=== PATIENT | female | born 1930 | race Caucasian/White ===

== ENCOUNTER 2016-11-05 10:57 | Emergency (ER) | payer OTHER, MEDICARE ==
[~2016-11-05] VITALS: Ht 157.5 cm; Wt 73.8 kg
[~2016-11-05 10:57] MED LIST: CLC100 PO; FRRG PO; INSU70IN2 SC; LVNIS40 SQ; RXC5 PO
[2016-11-05 11:00] VITALS: TEMP 36.8; Ht 157.5 cm; Wt 73.8 kg
[2016-11-05] MEDS ORDERED: POTA-74 PO (11:43)
[2016-11-05] MEDS ORDERED: GLC/500 PO (11:45)
[2016-11-05] MEDS ORDERED: CLINDAMYCIN 600 MG/54 ML D5W IV ONE (11:45)
[2016-11-05] MEDS ORDERED: FRS/40 PO (11:46)
[2016-11-05] MEDS ORDERED: CLIN300C2 PO (11:49)
[2016-11-05 12:04] LABS: BASO % 0.1 %; BASO ABS # 0.01 K/uL (0-0.2); COMPLETE YES; EOS % 1.8 %; IG% 0.1 %; LYMPH % 20.4 %; LYMPH ABS # 1.51 K/uL (1.2-3.4); MEAN CELL VOLUME 90.4 fL (80-100); MEAN CORPUSCULAR HEMOGLOBIN 30.7 pg (25-34); MEAN PLATELET VOLUME 10.9 fL (7.4-10.4); MONO % 6.8 %; NEUT % 70.8 %; PLATELET COUNT 293 K/uL (130-400); RED BLOOD COUNT 3.87 M/uL (4.2-5.4); WHITE BLOOD COUNT 7.39 K/uL (4.8-10.8)
[2016-11-05 12:21] LABS: BUN/CREATININE RATIO 13.2 (10-20); CALCIUM 9.1 mg/dl (8.5-10.1); CREATININE 1.1 mg/dl (0.60-1.20); POTASSIUM 3.7 mmol/L (3.5-5.1)
--- NOTE | 2016-11-05 12:25 | DIAGNOSTIC IMAGING REPORT ---
LEFT TIBIA/FIBULA 2 VIEWS ROUTINE CLINICAL HISTORY: Lower leg infection. Nonhealing wound. Diabetes. COMPARISON: None. DISCUSSION: The bones are osteopenic. There are degenerative changes present the level of the knee. There is mild lateral translation of the tibia with respect to the liver. There are no acute fractures. There are no destructive lesions to indicate osteomyelitis. There is soft tissue edema, most pronounced distally. IMPRESSION: 1. No acute fractures 2. Soft tissue edema 3. No conventional radiographic evidence of osteomyelitis Electronically signed by: Ian Aaron M.D. 11/05/2016 12:23 PM
--- NOTE | 2016-11-05 12:54 | EMERGENCY ROOM VISIT NOTE ---
ED Visit Note First contact with patient: 11:18 I have personally seen and evaluated the patient with the physician product safety technical assistant. I agree with the diagnostic/management decisions and have personally been involved in these decisions and agree with the diagnosis.
--- NOTE | 2016-11-05 13:49 | EMERGENCY ROOM VISIT NOTE ---
History First contact with patient: 11:18 Chief Complaint: WOUND INFECTION Stated Complaint: NON-HEALING WOUND Nursing Triage Summary: pt reports on sep 24 had wine bottle fell on her left lower leg. went to [facility] on saturday was marked withy marker and told to come to ed if worse or not better was placed on antibiotics History of Present Illness The patient is a 86 year old female who presents to the Emergency Room with complaints of a wound that is not healing on her left lower leg. The patient states on September 24 she dropped a wine bottle and it hit her left lower leg. The patient did not seek any medical attention at that time. Later she went to her family doctor since there was a wound on the left anterior leg that wasn't healing. He placed her on Keflex. Family member stated that she was not compliant with taking the Keflex. She then went to [facility] on Saturday and was prescribed clindamycin. She states she has been taking the clindamycin as prescribed. The patient states that they marked the area of redness around the open wound. She states it is not getting any better but is not getting any worse. She was told to come to the emergency room if symptoms were not improving. The patient denies any fever, chest pain or shortness of breath. The patient is diabetic. The patient states that her blood sugar this morning was 190. The patient denies any pain in the leg. Review of Systems 10 system review was performed and was negative unless stated otherwise history of present illness. Past Medical/Surgical History Medical Problems: (1) Closed right hip fracture (2) Diabetes mellitus (3) Injury of shoulder region Family History Omitted due to advanced age Social History Smoking Status: Never Smoker Marital Status: Housing Status: assisted Occupation Status: retired Current/Historical Medications Scheduled Clindamycin Hcl (Cleocin), 300 MG PO QID Furosemide (Lasix), 40 MG PO DAILY Metformin Hcl (Glucophage), 500 MG PO BID Potassium Chloride (Potassium Chloride Er), 1 TAB PO BID Allergies Coded Allergies: Morphine (Verified Adverse Reaction, Unknown, OVERSEDATION & VOMITING, 11/05) Physical Exam Vital Signs Date Time Temp Pulse Resp B/P Pulse Ox O2 Delivery O2 Flow Rate FiO2 11/05/16 13:14 80 20 125/66 96 Room Air 11/05/16 11:00 36.8 92 18 160/87 98 Room Air Physical Exam GENERAL: 86-year-old white female appears in no acute distress. MENTAL Status: Alert and oriented 3. LUNGS: Clear auscultation without wheezes rales or rhonchi. CARDIAC: Regular rate and rhythm without murmur. Pulses is full and equal throughout. LEFT LOWER EXTREMITY: There is approximately a 2 cm ulcerated lesion on the anterior aspect with surrounding erythema. The margins are marked consistent with prior evaluation at [facility]. The erythema does not extend past the marked margins there is no streaking up the leg.. Medical Decision & Procedures ER Provider Diagnostic Interpretation: LEFT TIBIA/FIBULA 2 VIEWS ROUTINE CLINICAL HISTORY: Lower leg infection. Nonhealing wound. Diabetes. COMPARISON: None. DISCUSSION: The bones are osteopenic. There are degenerative changes present the level of the knee. There is mild lateral translation of the tibia with respect to the liver. There are no acute fractures. There are no destructive lesions to indicate osteomyelitis. There is soft tissue edema, most pronounced distally. IMPRESSION: 1. No acute fractures 2. Soft tissue edema 3. No conventional radiographic evidence of osteomyelitis Electronically signed by: Ian Aaron M.D. 11/05/2016 12:23 PM Laboratory Results 11/05/16 11:55 Red Blood Count 3.87, Mean Corpuscular Volume 90.4, Mean Corpuscular Hemoglobin 30.7, Mean Corpuscular Hemoglobin Concent 34.0, Mean Platelet Volume 10.9, Neutrophils (%) (Auto) 70.8, Lymphocytes (%) (Auto) 20.4, Monocytes (%) (Auto) 6.8, Eosinophils (%) (Auto) 1.8, Basophils (%) (Auto) 0.1, Neutrophils # (Auto) 5.23, Lymphocytes # (Auto) 1.51, Monocytes # (Auto) 0.50, Eosinophils # (Auto) 0.13, Basophils # (Auto) 0.01 11/05/16 11:55 Test 11/05/16 11:55 White Blood Count 7.39 K/uL (4.8-10.8) Red Blood Count 3.87 M/uL (4.2-5.4) Hemoglobin 11.9 g/dL (12.0-16.0) Hematocrit 35.0 % (37-47) Mean Corpuscular Volume 90.4 fL (80-100) Mean Corpuscular Hemoglobin 30.7 pg (25-34) Mean Corpuscular Hemoglobin Concent 34.0 g/dl (32-36) Platelet Count 293 K/uL (130-400) Mean Platelet Volume 10.9 fL (7.4-10.4) Neutrophils (%) (Auto) 70.8 % Lymphocytes (%) (Auto) 20.4 % Monocytes (%) (Auto) 6.8 % Eosinophils (%) (Auto) 1.8 % Basophils (%) (Auto) 0.1 % Neutrophils # (Auto) 5.23 K/uL (1.4-6.5) Lymphocytes # (Auto) 1.51 K/uL (1.2-3.4) Monocytes # (Auto) 0.50 K/uL (0.11-0.59) Eosinophils # (Auto) 0.13 K/uL (0-0.5) Basophils # (Auto) 0.01 K/uL (0-0.2) RDW Standard Deviation 42.0 fL (36.4-46.3) RDW Coefficient of Variation 12.7 % (11.5-14.5) Immature Granulocyte % (Auto) 0.1 % Immature Granulocyte # (Auto) 0.01 K/uL (0.00-0.02) Anion Gap 8.0 mmol/L (3-11) Est Creatinine Clear Calc Drug Dose 35.8 ml/min Estimated GFR () 53.4 Estimated GFR (Non- 46.1 BUN/Creatinine Ratio 13.2 (10-20) Calcium Level 9.1 mg/dl (8.5-10.1) Medications Administered Medications (Trade) Dose Ordered Sig/Simon Route Start Time Stop Time Status Last Admin Dose Admin Clindamycin Phosphate (Cleocin 600mg/ 54ml D5W) 600 mg ONE ONCE IV 11/05/16 11:45 11/05/16 11:46 DC 11/05/16 12:01 600 MG ED Course The patient was evaluated. IV access was obtained. The patient was given 600 mg of clindamycin IV. CBC and differential renal profile was ordered. Labs are reviewed and were unremarkable except for elevated nonfasting glucose at 229. White count was normal. X-ray of the left lower leg was ordered and interpreted by the radiologist and myself as above without any evidence of osteomyelitis. A wound culture was obtained. Culture is pending. The patient was independently evaluated by Dr. Olea who agrees with treatment plan. A dressing was applied to the wound. The complex case manager will set up an appointment with the wound clinic for further evaluation. The patient will also need a recheck by her family physician in 2 days. The patient was discharged home in stable condition. Medical Decision Differential diagnosis include diabetic ulcer, cellulitis, The patient's area of erythema is not getting worse and I feel that the antibiotic just needs a chance to start working. I feel that she will benefit from treatment at the wound clinic. Impression Primary Impression: Skin ulcer Additional Impression: Cellulitis Departure Information Dispostion Home / Self-Care Condition GOOD Referrals Rodolfo Clark M.D. (PCP) Patient Instructions A Signature Page, Cellulitis - [facility], [facility] Additional Instructions Keep leg elevated whenever possible. Continue clindamycin as prescribed. Follow-up with your family physician in 2 days for recheck. If symptoms worsen in in the interim, return to ER. Follow-up with wound clinic as directed. Keep dressing in place until reevaluated at wound clinic or family physician.
[2016-11-05 14:06] VITALS: BP 125/62; PULSE 81; O2SAT 97
[2016-11-09] MEDS ORDERED: AMOX500C3 PO (15:13)
--- NOTE | 2016-11-12 13:33 | Pharmacy Progress Note ---
ED Pharmacist Culture FollowUp Date of Service: Nov 12, 2016. Patient's LL leg ulcer wound cx from 11/05/16 growing enterococcus faecalis and morazxella catarrahalis. Dr Brooks had asked that we contact the patient and stop the clindamycin she had been discharged on clindamycin and call in new Rx for Augmentin 875mg PO BID x 10 days. Upon reviewing the medical record, she is now a patient at the [facility]. She was seen there last week and was told to stop taking the clindamycin and she was placed on Amoxil (per Linh at the Wound Center). The enterococcus in the culture is sensitive to aminopenicillins and this would be appropriate to cover the enterococcus. She has a f/u appointment at the wound clinic this week per Linh ZHAO. The wound culture results were reviewed by Wound Center. No action taken at this time.
== END 2016-11-05 14:07 | disposition home or self-care (01) ==
LOC: C.EDB 11:00 → C.EDD 14:07
DX: L97.909 Non-pressure chronic ulcer of unspecified part of unspecified lower leg with unspecified severity (principal); L03.116 Cellulitis of left lower limb; E11.622 Type 2 diabetes mellitus with other skin ulcer; Z79.899 Other long term (current) drug therapy

== ENCOUNTER → 2017-02-12 | Outpatient (CLI) | payer OTHER, MEDICARE ==
[~2017-02-12] MED LIST changes: -CLC100 PO; -FRRG PO; +FRS/40 PO; +GLC/500 PO; -INSU70IN2 SC; -LVNIS40 SQ; +POTA-74 PO; -RXC5 PO
[2017-02-12 15:20] LABS: BASO % 0.2 %; BASO ABS # 0.01 K/uL (0-0.2); COMPLETE YES; EOS % 1.8 %; HEMATOCRIT 35.7 % (37-47); IG% 0.3 %; LYMPH % 29.1 %; LYMPH ABS # 1.92 K/uL (1.2-3.4); MEAN CELL VOLUME 88.8 fL (80-100); MEAN CORPUSCULAR HEMOGLOBIN 30.1 pg (25-34); MEAN CORPUSCULAR HGB CONC 33.9 g/dl (32-36); MEAN PLATELET VOLUME 11.2 fL (7.4-10.4); MONO % 8.5 %; NEUT % 60.1 %; PLATELET COUNT 270 K/uL (130-400); RED BLOOD COUNT 4.02 M/uL (4.2-5.4)
[2017-02-12 15:37] LABS: ALT/SGPT 19 U/L (12-78); AST/SGOT 17 U/L (15-37); BLOOD UREA NITROGEN 24 mg/dl (7-18); BUN/CREATININE RATIO 18.1 (10-20); CALCIUM 9.9 mg/dl (8.5-10.1); CARBON DIOXIDE 30 mmol/L (21-32); CHLORIDE 104 mmol/L (98-107); GLUCOSE 197 mg/dl (70-99); POTASSIUM 4.3 mmol/L (3.5-5.1); SODIUM 140 mmol/L (136-145)
[2017-02-12 15:48] LABS: ALB/GLOB RATIO 0.9 (0.9-2); ALKALINE PHOSPHATASE 79 U/L (45-117); THYROID STIMULATING HORMONE 0.909 uIu/ml (0.300-4.500)
[2017-02-13 06:12] LABS: ESTIMATED AVERAGE GLUCOSE 229 mg/dl; HA1C FLAG Normal (Normal)
== END | disposition home or self-care (01) ==
LOC: C.LABSPEC 14:57
PROVIDERS: ATTEND Internal Medicine
DX: E11.9 Type 2 diabetes mellitus without complications (principal); R63.4 Abnormal weight loss

== ENCOUNTER → 2017-12-23 | Outpatient (CLI) | payer OTHER, MEDICARE ==
[2017-12-23 13:58] LABS: BASO % 0.3 %; BASO ABS # 0.02 K/uL (0-0.2); EOS % 2.2 %; EOS ABS # 0.17 K/uL (0-0.5); HEMATOCRIT 36.1 % (37-47); IG# 0.03 K/uL (0.00-0.02); LYMPH % 26.6 %; LYMPH ABS # 2.04 K/uL (1.2-3.4); MEAN CELL VOLUME 88.7 fL (80-100); MEAN CORPUSCULAR HEMOGLOBIN 29.5 pg (25-34); MEAN CORPUSCULAR HGB CONC 33.2 g/dl (32-36); MEAN PLATELET VOLUME 11.3 fL (7.4-10.4); MONO % 9.7 %; MONO ABS # 0.74 K/uL (0.11-0.59); NEUT % 60.8 %; NEUT ABS # 4.66 K/uL (1.4-6.5); PLATELET COUNT 268 K/uL (130-400); RED CELL DISTRIBUTION WIDTH CV 13.9 % (11.5-14.5); RED CELL DISTRIBUTION WIDTH SD 44.9 fL (36.4-46.3); WHITE BLOOD COUNT 7.66 K/uL (4.8-10.8)
[2017-12-23 14:09] LABS: ALBUMIN 3.5 gm/dl (3.4-5.0); ALT/SGPT 12 U/L (12-78); AST/SGOT 16 U/L (15-37); BLOOD UREA NITROGEN 21 mg/dl (7-18); CALCIUM 9.3 mg/dl (8.5-10.1); CARBON DIOXIDE 30 mmol/L (21-32); CREATININE 1.01 mg/dl (0.60-1.20); GLUCOSE 137 mg/dl (70-99); HEMOGLOBIN A1C 7.8 % (4.5-5.6); POTASSIUM 3.8 mmol/L (3.5-5.1); SODIUM 139 mmol/L (136-145)
[2017-12-23 14:14] LABS: ALKALINE PHOSPHATASE 82 U/L (45-117); TOTAL PROTEIN 7.8 gm/dl (6.4-8.2)
== END | disposition home or self-care (01) ==
LOC: C.LABSPEC 12:44
PROVIDERS: ATTEND Internal Medicine
DX: E11.9 Type 2 diabetes mellitus without complications (principal)

== ENCOUNTER → 2017-12-25 | Outpatient (CLI) | payer OTHER, MEDICARE ==
[~2017-12-25] MED LIST changes: +OPTIRAY 320 IV PRN
--- NOTE | 2017-12-25 15:33 | DIAGNOSTIC IMAGING REPORT ---
CT SCAN OF THE ABDOMEN AND PELVIS WITH IV CONTRAST CLINICAL HISTORY: Left lower quadrant abdominal pain. COMPARISON STUDY: Abdominal CT dated 03/11/2015. TECHNIQUE: Following the IV administration of 91 cc of Optiray 320, CT scan of the abdomen and pelvis is performed from the lung bases to the proximal femora. Images are reviewed in the axial, sagittal, and coronal planes. IV contrast was administered without complication. A dose lowering technique was utilized adhering to the principles of ALARA. CT DOSE: 748.20 mGy.cm FINDINGS: Lung bases: The heart is mildly enlarged and without pericardial effusion. The coronary arteries and aortic valve leaflets are calcified. There is a tiny hiatal hernia. The lung bases are clear noting bibasilar scarring versus atelectasis. Liver: The contrast-enhanced liver is normal in size, contour, and attenuation. There is mild central intrahepatic biliary ductal dilatation. The hepatic veins and portal veins are patent. Gallbladder: Surgically absent noting clips in the gallbladder fossa. Spleen: Normal in size and attenuation. There are calcified splenic granulomas. Pancreas: The pancreas is atrophic. Scattered parenchymal calcifications suggest a history of chronic pancreatitis. Adrenal glands: Unremarkable. Kidneys: The contrast enhanced kidneys are atrophic and without hydronephrosis. The kidneys enhance symmetrically. Abdominal vasculature: The abdominal aorta is normal in course and caliber noting moderate to advanced atherosclerotic calcification. Bowel: There is moderate diverticulosis of the left colon without CT evidence of acute diverticulitis. Moderate colonic fecal retention is observed. No bowel obstruction is seen. The appendix is not identified and reported surgically absent. Peritoneum: There is no intraperitoneal free air or abdominal ascites. There is diastases of the rectus abdominis musculature. Lymphadenopathy: None. Pelvic viscera: The bladder, uterus, and adnexa are normal as visualized. Skeletal structures: The skeletal structures are osteopenic. There is a moderate compression deformity of T12. A mild superior endplate compression deformity is noted in L3. There is moderate lumbosacral spondylosis and scoliosis. There is chronic posttraumatic deformity and postoperative change identified in the right hip. No lytic or blastic lesions are seen. IMPRESSION: 1. There are no acute infectious or inflammatory findings in the abdomen or pelvis. 2. Moderate diverticulosis of the left colon without CT evidence of acute diverticulitis. 3. Moderate constipation. No bowel obstruction is seen. 4. Cardiomegaly. 5. Additional findings as above. Electronically signed by: Jean-Pierre March M.D. 12/25/2017 3:32 PM Dictated Date/Time: 12/25/2017 3:19 PM
== END | disposition home or self-care (01) ==
LOC: C.CTS 14:33
PROVIDERS: ATTEND Internal Medicine
DX: K57.30 Diverticulosis of large intestine without perforation or abscess without bleeding (principal); K59.00 Constipation, unspecified

== ENCOUNTER → 2018-06-23 | Outpatient (CLI) | payer OTHER, MEDICARE ==
[~2018-06-23] MED LIST changes: -OPTIRAY 320 IV PRN
--- NOTE | 2018-06-23 15:12 | DIAGNOSTIC IMAGING REPORT ---
R HIP UNILATERAL 2 VIEWS CLINICAL HISTORY: Right hip pain COMPARISON: 11/06/2015 DISCUSSION: There are old postsurgical changes. There is a femoral neck trochanteric nail with interlocking medullary christiano. There is prominent heterotopic ossification at the level of the lesser trochanter. There are no acute fractures. The bones are mildly osteopenic IMPRESSION: 1. No acute fractures 2. Postsurgical changes 3. 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 06/23/2018 3:11 PM Dictated Date/Time: 06/23/2018 3:10 PM
== END | disposition home or self-care (01) ==
LOC: C.RAD 14:43
PROVIDERS: ATTEND Internal Medicine
DX: M61.48 Other calcification of muscle, other site (principal); Z98.890 Other specified postprocedural states; Z96.7 Presence of other bone and tendon implants

== ENCOUNTER → 2018-06-23 | Outpatient (CLI) | payer OTHER, MEDICARE ==
[2018-06-23 13:49] LABS: BASO % 0.2 %; BASO ABS # 0.01 K/uL (0-0.2); EOS % 1.8 %; EOS ABS # 0.12 K/uL (0-0.5); HEMATOCRIT 37.9 % (37-47); HEMOGLOBIN 12.4 g/dL (12.0-16.0); IG# 0.02 K/uL (0.00-0.02); MEAN CELL VOLUME 89.4 fL (80-100); MEAN CORPUSCULAR HEMOGLOBIN 29.2 pg (25-34); MEAN CORPUSCULAR HGB CONC 32.7 g/dl (32-36); MEAN PLATELET VOLUME 11.7 fL (7.4-10.4); MONO % 7.8 %; MONO ABS # 0.51 K/uL (0.11-0.59); NEUT % 66.9 %; NEUT ABS # 4.36 K/uL (1.4-6.5); PLATELET COUNT 305 K/uL (130-400); RED CELL DISTRIBUTION WIDTH CV 13.5 % (11.5-14.5); WHITE BLOOD COUNT 6.52 K/uL (4.8-10.8)
[2018-06-23 14:03] LABS: PTT PATIENT 27.1 SECONDS (21.0-31.0)
[2018-06-23 14:13] LABS: ALBUMIN 3.5 gm/dl (3.4-5.0); ALKALINE PHOSPHATASE 77 U/L (45-117); ALT/SGPT 13 U/L (12-78); AST/SGOT 18 U/L (15-37); BLOOD UREA NITROGEN 22 mg/dl (7-18); CALCIUM 9.3 mg/dl (8.5-10.1); CARBON DIOXIDE 28 mmol/L (21-32); CHOLESTEROL 183 mg/dl (0-200); CREATININE 1.16 mg/dl (0.60-1.20); GLUCOSE 150 mg/dl (70-99); LDL CHOLESTEROL (DIRECT) 109 mg/dl; POTASSIUM 3.6 mmol/L (3.5-5.1); SODIUM 139 mmol/L (136-145); TOTAL PROTEIN 7.9 gm/dl (6.4-8.2)
[2018-06-23 14:26] LABS: HEMOGLOBIN A1C 7.5 % (4.5-5.6)
== END | disposition home or self-care (01) ==
LOC: C.LABSPEC 13:27
PROVIDERS: ATTEND Internal Medicine
DX: E11.65 Type 2 diabetes mellitus with hyperglycemia (principal); E78.5 Hyperlipidemia, unspecified; R53.83 Other fatigue; M25.551 Pain in right hip; D69.2 Other nonthrombocytopenic purpura